=== PATIENT | male | born 1985 | race African-American/Black ===

== ENCOUNTER 2017-11-14 19:32 | Emergency (ER) | payer MEDICAID ==
[~2017-11-14] VITALS: Ht 182.9 cm; Wt 129.3 kg
[2017-11-14 19:37] VITALS: Ht 182.9 cm; Wt 129.3 kg
[2017-11-14 21:02] LABS: BASOPHIL % 0.4 % (0-2); PLATELET COUNT 206 x10^3mcL (130-400); RED CELL DISTRIBUTION WIDTH 14.3 % (11.5-14.5)
[2017-11-14 21:13] LABS: CALCIUM 9.5 mg/dL (8.5-10.1); CARBON DIOXIDE 21.8 mmol/L (21-32); CHLORIDE SERUM 100 mmol/L (98-107); CREATININE SERUM 1.1 mg/dL (0.7-1.3); GFR1 > 60 mL/min; GLUCOSE SERUM 86 mg/dL (74-106); POTASSIUM SERUM 3.9 mmol/L (3.5-5.1); SODIUM SERUM 136 mmol/L (136-145)
[2017-11-14 21:24] LABS: ALBUMIN 4.6 g/dL (3.4-5.0); ALKALINE PHOSPHATASE 80 U/L (46-116); ALT/SGPT 50 U/L (16-63); AST/SGOT 45 U/L (15-37)
[2017-11-14 21:26] LABS: TOTAL PROTEIN, SERUM 8.8 g/dL (6.4-8.2)
[2017-11-14 22:03] VITALS: BP 130/86
== END 2017-11-14 22:04 | disposition home or self-care (01) ==
LOC: ED 19:32
PROVIDERS: Emergency Medicine
DX: R56.9 Unspecified convulsions (principal); E78.00 Pure hypercholesterolemia, unspecified; I10 Essential (primary) hypertension
CPT/HCPCS: 36415